=== PATIENT | female | born 1970 | race Caucasian/White ===

== ENCOUNTER 2025-06-15 10:39 | Outpatient (AMB) | payer OTHER, SELFPAY ==
--- NOTE | 2025-06-15 10:43 | MHC.OFFVIS ---
Intake Visit Reasons: 1 yr Allergies bupropion (From WELLBUTRIN) Allergy (Intermediate, Unverified 06/15/25 10:49) mouth sores latex (LATEX) Allergy (Intermediate, Unverified 06/15/25 10:49) rash Sulfa (Sulfonamide Antibiotics) (SULFA (SULFONAMIDE ANTIBIOTICS)) Allergy (Intermediate, Unverified 06/15/25 10:49) rash sulfamethoxazole (From BACTRIM) Allergy (Mild, Verified 06/15/25 10:49) RASH trimethoprim (From BACTRIM) Allergy (Mild, Verified 06/15/25 10:49) RASH bactrim Allergy (Unknown, Uncoded 06/15/25 10:49) Unknown Medication List - Last Reconciled 06/15/25 by Jamee Hartman CNP albuterol sulfate 90 mcg/actuation (Ventolin HFA) 1 puff inhalation QID PRN aspirin 81 mg PO DAILY clonazepam 1 mg PO DAILY PRN diclofenac sodium 1% 4 grams topical QID lisinopril 5 mg PO DAILY metoprolol tartrate 25 mg PO BID morphine ER 30 mg PO Q12H morphine ER 45 mg PO DAILY nabumetone 750 mg PO DAILY naproxen sodium 550 mg PO BID PRN polyethylene glycol 3350 (Miralax) 17 grams PO DAILY prazosin 1 mg PO DAILY sertraline 100 mg PO QAM sumatriptan succinate 100 mg PO zolpidem 10 mg PO BEDTIME HPI Comments Details: She was having few headaches a week. Naproxen and coffee helped most of the time, but if not would take sumatriptan with good relief. Balance was still off. She fell in 04/2025 walking her dog down some stairs when her dog pulled on the leash and she could not catch herself and sprained her ankle. She was following with [facility] for chronic back pain, treated with chronic opioids. She NCV/EMG UE at [facility] for numbness in fingers, R > L, that has been ongoing for months which apparently was negative for CTS, report not available for review. She was having occasional, involuntary, jerking in her legs for last few months. She had recent labs done by PCP which she had results of and were reviewed. She also had MRI C-spine and LS spine earlier this year ordered by [facility] which she had report of and were reviewed. She feels like depth perception on R may be off when driving, no accidents or issues driving. She had recent eye exam and got new glasses about 1 week ago which now had prisms for both eyes. She also reported having visual field testing at [facility] last month which was apparently okay, results not available. She was also dealing with TMJ. Migraines increased to 2/ wk with more stress. Lasting all day with photophobia and sonophobia and some nausea. Lasts all day. Naproxen and Excedrin Migraine only work minimally now. Still has balance problems, falling and tilting and tripping on left leg and legs give out. In June 2017 she started to get burning sensation from the left buttock down her left lower extremity. Gabapentin did not help. In the last few months she's developed numbness and weakness in her arms and legs including pins and needle sensation that come and go in her hands and feet and sometimes stumbling and going to one side. The stumbling has been going on since March 2017. She says that there are times where she loses feeling completely in her hands and cannot feel anything. She had a normal MRI of the brain, an MRI of the entire spine that showed some degenerative disc disease and a central disc herniation at C 6/7 with very slight indentation of the cord. None of these findings explain her symptoms.; was admitted to 11/20/16 after 2 syncopal or near-syncopal episodes. Her came in to make herself some coffee and found the patient slumped on the toilet against the wall, but not on the floor. She apparently was constipated and had been straining and she passed out. There was no tongue biting or incontinence. She helped the patient to the bed, and she was responding slowly and had no other symptoms of chest pain,palpitations, shortness of breath, and dizziness. She left her there, came back after work and she was hard to arouse. There is no previous history of syncope. She had neurology evaluation in April 2016 for left-sided weakness and headache, and was diagnosed with migraine and thought to be a conversion disorder. She was started on topiramate and also sees a therapist. [facility] Medical History (Updated 06/15/25 @ 10:49 by Jamee Hartman CNP) Chronic back pain Migraine AAA (abdominal aortic aneurysm) Uterine abscess Osteoarthritis Surgical History (Updated 10/01/24 @ 09:43 by Rosmery Ibarra) History of reversal of ileostomy S/P cholecystectomy S/P hernia repair History of hysterectomy Review of Systems Const Denies chills, Denies daytime sleepiness, Reports difficulty sleeping, Reports fatigue, Denies fever(s), Denies frequent falls, Reports headache(s), Denies increased appetite, Denies poor appetite, Denies snoring, Denies weakness, Denies weight gain and Denies weight loss Eyes Denies loss of vision ENT Denies vertigo, Reports dizziness, Reports headache(s) and Reports neck pain Card Denies chest pain at rest, Denies chest pain with activity, Denies syncope, Denies leg edema, Denies palpitations, Denies dyspnea and Denies dyspnea on exertion Resp Denies cough, Denies dyspnea, Denies dyspnea on exertion and Denies snoring GI Denies abdominal pain, Denies constipation, Denies heartburn, Denies diarrhea and Denies nausea Denies urinary frequency, Denies urinary incontinence and Denies urinary urgency Musc Denies abnormal gait, Reports back pain, Denies myalgias, Reports arthralgias, Reports neck pain, Reports numbness and Reports tingling Neuro Denies abnormal gait, Denies vertigo, Reports dizziness, Denies syncope, Denies frequent falls, Reports headache(s), Reports lack of coordination, Denies loss of vision, Reports memory loss, Reports numbness, Denies Other visual disturbances, Reports restless legs, Denies seizure-like activity, Reports tingling, Denies paresthesias, Denies tremor(s), Denies weakness and Reports other (balance difficulty) Psych Reports anxiety, Reports depression, Denies auditory hallucinations, Reports memory loss and Denies visual hallucinations Endo Reports fatigue and Denies palpitations Physical Exam Const Other: General Appearance:? normal, in no acute distress. Heart:? S1, S2 normal, no murmurs. Lungs:? clear anteriorly and posteriorly. Musculoskeletal:? normal. Extremities:? no edema. Psych:? alert, oriented, cognitive function intact, cooperative with exam. Neuro Other: Abnormal Neurological Findings:?left hip flexor weakness. Mental Status: alert and oriented X 3. Normal attention, orientation, memory, and affect. Cranial Nerves: Pupils are equal, round, and reactive to light. External ocular muscles are intact. Visual stern are full, no ptosis. Face is symmetrical, no facial weakness or droop. Facial sensations are normal. Tongue protrudes in midline. Palate elevates symmetrically. Shoulder shrugging is normal Motor Examination: As above. Sensory Exam: Normal light touch, temperature, pinprick, vibration, and joint-position sensations. Rhomberg sign is absent. Coordination: No ataxia. No titubation. Gait Exam: Within normal limits. Cerebellar Signs: [id number] is okay. Extrapyramidal System: No tremor, rigidity with normal facial expressions. No bradykinesia. No bradyphrenia. Normal arm swing and posture. No propulsion or retropulsion. Speech: Normal. Results Reviewed Results Reviewed: 2015 MRI brain normal ( single non specific WM hyperintensity in right hemisphere) C spine shows left paramedian central disc herniation at C6-7 Thoracic and lumbar degen disc disease at T5-6 and T8-9. Lateral lower right foraminal encroachmnet at L4-5 and L5-S1 level from facet arthropathy. NCV/EMG ALL 10/06/17 Normal motor and sensory nerve conduction velocities in the upper and lower extremities. Normal EMG in the right C5-T1 and left L4-S1 innnervated muscles. ELANA and USER WNL. FAINA : Mild delay in the anterior optic pathways bilaterally LSER: No identifiable waveforms were obtained, including lumbar point potentials Labs for Lupus and Lyme . 12/06/21 MRI brain and C spine : left paramedian C6-7 disc osteophyte complex distorting evntral surface of spinal cord. No abnormal cord signal. MRI brain unremarkable single right posterior parital subcortical hyperintensity of questionable significance. Labs from PCP 04/2025: TSH ok, CBC ok, CMP ok with BUN 18, creat 1.08 MRI C-spine 10/24/2024: Degenerative changes without cord compression or cord signal abnormality. Foraminal stenosis most pronounced on L at C6-7 (reported). MRI LS spine 07/2024: Degenerative changes of the lumbar spine with central canal and foraminal narrowing (reported) Assessment & Plan Assessment & Plan (1) Migraine: Code(s): G43.909 - Migraine, unspecified, not intractable, without status migrainosus Category: Medical Qualifiers: Intractability: not intractable Migraine type: unspecified Status migrainosus presence: without status migrainosus Qualified Code(s): G43.909 - Migraine, unspecified, not intractable, without status migrainosus Plan: Continue sumatriptan 100mg 1 tablet as needed for migraine. (2) Demyelinating disease: Comment: Somatoform disorder vs early demyelinating disease Code(s): G37.9 - Demyelinating disease of central nervous system, unspecified Category: Medical Plan: Somatoform disorder vs early demyelinating disease (3) Anxiety and depression: Code(s): F41.9 - Anxiety disorder, unspecified; F32.A - Depression, unspecified Category: Medical Plan Labs from PCP reviewed, MRI C-spine and LS spine report reviewed - ordered by and following with [facility]. Medications: New sumatriptan succinate take 1 tab at onset of headache; if no relief, may repeat 1 tab after at least 2 hrs; max = 2 tabs/24 hrs PO 10 tabs 5RF 30 days Coding Level of Care Code Est Pt Level 4 (55549) Diagnoses Migraine without status migrainosus, not intractable, unspecified migraine type G43.909 Intractability: not intractable Migraine type: unspecified Status migrainosus presence: without status migrainosus Demyelinating disease G37.9 Anxiety and depression F41.9; F32.A
== END 2025-06-15 11:20 | disposition home or self-care (01) ==
PROVIDERS: PCP Family Medicine; Referring Provider Family Medicine; Visit Provider Registered Nurse
DX: G43.909 Migraine, unspecified, not intractable, without status migrainosus (principal); G37.9 Demyelinating disease of central nervous system, unspecified; F41.9 Anxiety disorder, unspecified; F32.A Depression, unspecified
CPT/HCPCS: 99214

== ENCOUNTER → 2025-06-15 10:39 | Outpatient (BNVA) | payer OTHER, SELFPAY | PROVIDERS: PCP Family Medicine; Referring Provider Family Medicine; Visit Provider Registered Nurse | DX: G43.909 Migraine, unspecified, not intractable, without status migrainosus (principal); G37.9 Demyelinating disease of central nervous system, unspecified; F41.9 Anxiety disorder, unspecified; F32.A Depression, unspecified | CPT/HCPCS: 99212 ==